=== PATIENT | female | born 1940 | race Caucasian/White ===

== ENCOUNTER 2016-12-14 08:00 | Inpatient (IN) | payer MEDICARE, OTHER ==
[2016-12-13 09:09] VITALS: BMI 24.4
[~2016-12-14] VITALS: Ht 154.9 cm; Wt 57.5 kg
[2016-12-20 09:12] VITALS: BMI 24.4
[2016-12-21] VITALS (30 sets, daily range): BP systolic 99–152; BP diastolic 45–70; PULSE 62–88; RESP 13–22; Ht 154.9 cm; Wt 57.5 kg
[2016-12-21] MEDS ORDERED: BETAMET NA PHOS/AC(6 MG/ML) 5ML INJ IM ONE
[2016-12-21] MEDS ORDERED: GELATIN SIZE 100 SPONGE TOP ONE
[2016-12-21] MEDS ORDERED: CEFAZOLIN 2 GM/50 ML (PMX) 50 ML IVPB ONE (06:00)
[2016-12-21] MEDS ORDERED: NAPR125O4 PO (06:33)
[2016-12-21] MEDS ORDERED: CEFAZOLIN 1 GM INJ ONE (07:00)
[2016-12-21] MEDS ORDERED: ROCURONIUM 50 MG INJ ONE ×2 (07:00→08:12)
[2016-12-21] MEDS ORDERED: NEOSTIGMINE 3 MG/3 ML SYRINGE ONE (07:00)
[2016-12-21] MEDS ORDERED: GLYCOPYRROLATE 1 MG INJ ONE (07:00)
[2016-12-21 07:08] LABS: INR 0.97; PARTIAL THROMBOPLASTIN TIME 27.7 Sec (25.0-35.0); PROTIME 12.9 Sec (12.2-14.2)
[2016-12-21 07:10] LABS: ALBUMIN 4.2 g/dl (3.3-4.9)
[2016-12-21 07:13] LABS: ALBUMIN/GLOBULIN RATIO 1.1; BILIRUBIN,INDIRECT 0.5 mg/dl (0-1.1); BILIRUBIN,TOTAL 0.5 mg/dl (0.2-1.3)
--- NOTE | 2016-12-21 07:16 | HPN ---
Date/Time of Note Date/Time of Note DATE: 12/21/16 TIME: 07:16 Interval H&P Admission Note Pt. seen H&P reviewed: No system changes REDDY TREVIÑO MD Dec 21, 2016 07:16
[2016-12-21 07:18] LABS: CALCIUM 9.3 mg/dl (8.4-10.2); CREATININE 0.79 mg/dl (0.44-1.00); POTASSIUM 3.7 mmol/L (3.5-5.1)
[2016-12-21 07:21] LABS: BASOPHILS % 0.6 % (0.0-2.0); EOSINOPHILS # 0.1 10^3/ul (0.0-0.5); EOSINOPHILS % 1.1 % (0.0-7.0); HEMATOCRIT 41.1 % (37.0-47.0); LYMPHOCYTES # 1.6 10^3/ul (0.8-2.9); LYMPHOCYTES % 25.4 % (15.0-51.0); MEAN CORPUSCULAR HEMOGLOBIN 31.7 pg (29.0-33.0); MEAN CORPUSCULAR VOLUME 93.1 fl (82.0-101.0); MEAN PLATELET VOLUME 8.1 fl (7.4-10.4); MONOCYTE # 0.5 10^3/ul (0.3-0.9); MONOCYTES % 7.3 % (0.0-11.0); NEUTROPHIL # 4.2 10^3/ul (1.6-7.5); NEUTROPHILS % 65.6 % (39.0-77.0); PLATELET COUNT 202 10^3/UL (140-440); RED BLOOD COUNT 4.42 10^6/ul (4.20-5.40); RED CELL DISTRIBUTION WIDTH 13.6 % (11.5-14.5); UNCORRECTED WBC 6.4 10^3/ul (4.8-10.8); WHITE BLOOD COUNT 6.4 10^3/ul (4.8-10.8)
[2016-12-21] MEDS ORDERED: GELATIN SIZE 100 SPONGE ONE (07:29)
[2016-12-21] MEDS ORDERED: SURGIFOAM POWDER 1 GM KIT ONE (07:29)
[2016-12-21] MEDS ORDERED: BUPIVACAINE 0.25%/EPI (SDV) 30 ML INJ ONE (07:30)
[2016-12-21] MEDS ORDERED: CA CHLORIDE 10% 10 ML SYRINGE ONE (07:30)
[2016-12-21] MEDS ORDERED: THROMBIN 5000 UNIT VIAL ONE ×2 (07:30→11:19)
[2016-12-21] MEDS ORDERED: BUPIVACAINE 0.25% (MPF) 30 ML INJ ONE (07:31)
[2016-12-21 07:47] LABS: CONDITION 1
[2016-12-21] MEDS ORDERED: POLYMYXIN/BACITRACIN 1L IRRIG ONE (08:00)
[2016-12-21] MEDS ORDERED: PROPOFOL 100 ML ONE ×2 (08:12→10:57)
[2016-12-21] MEDS ORDERED: MIDAZOLAM 1 MG/ML 2 ML INJ ONE (08:12)
[2016-12-21] MEDS ORDERED: HYDROmorphONE 2 MG/ML SYG ONE (08:12)
[2016-12-21] MEDS ORDERED: POLYMYXIN/BACITRACIN 1L IRRIG IRR ONE (08:36)
[2016-12-21] MEDS ORDERED: BUPIVACAINE 0.25%/EPI (SDV) 30 ML INJ INJ ONE (08:36)
[2016-12-21] MEDS ORDERED: BETAMET NA PHOS/AC(6 MG/ML) 5ML INJ ONE (09:02)
[2016-12-21] MEDS ORDERED: THROMBIN 5000 UNIT VIAL TOP ONE ×2 (09:07)
[2016-12-21] MEDS ORDERED: ONDANSETRON 4 MG INJ ONE (09:45)
[2016-12-21] MEDS ORDERED: METOCLOPRAMIDE 10 MG INJ ONE (09:45)
[2016-12-21] MEDS ORDERED: DEXAMETHASONE 4 MG/ML 1 ML INJ ONE (09:45)
[2016-12-21] MEDS ORDERED: ACETAMINOPHEN 1000MG/100ML IV 100 ML ONE (09:45)
[2016-12-21] MEDS ORDERED: FAMOTIDINE 20 MG INJ ONE (09:46)
[2016-12-21] MEDS ORDERED: MEPERIDINE 25 MG INJ IV PRN (10:30)
[2016-12-21] MEDS ORDERED: morphine (1 MG/ML) 10ML SYRINGE IV PRN ×3 (10:30)
[2016-12-21] MEDS ORDERED: hydrALAzine 20 MG INJ IV PRN (10:30)
[2016-12-21] MEDS ORDERED: ONDANSETRON 4 MG INJ IV PRN ×2 (10:30→12:00)
[2016-12-21] MEDS ORDERED: LABETALOL HCL 20MG INJ IV PRN (10:30)
[2016-12-21] MEDS ORDERED: DIPHENHYDRAMINE 50 MG INJ IV PRN (10:30)
[2016-12-21] MEDS ORDERED: METOCLOPRAMIDE 10 MG INJ IV PRN (10:30)
[2016-12-21] MEDS ORDERED: EPHEDrine SULFATE 50 MG/5 ML SYG IV PRN (10:30)
[2016-12-21] MEDS ORDERED: ALBUMIN HUMAN 5% 250 ML IV PRN (10:30)
[2016-12-21] MEDS ORDERED: HYDROmorphONE (0.2 MG/ML) 10ML SYG IV PRN ×3 (10:30)
--- NOTE | 2016-12-21 11:41 | RADRPT ---
PROCEDURE: Intraoperative imaging of the lumbar spine with fluoroscopy. CLINICAL INDICATION: Back pain. Intraoperative. TECHNIQUE: Four images of the lumbar spine were obtained in the operating room with an image inten sifier. No radiologist was in attendance. 6.6 seconds of fluoroscopy time was used. COMPARISON: No prior study is available for comparison. FINDINGS: Posterior surgical instruments are noted overlying the lumbar spine. IMPRESSION: 1. Intraoperative imaging of the lumbar spine. RPTAT: QQ .Gregorio Barker MD, MD Date Time Electronically viewed and signed by .Gregorio Barker MD, MD on 12/21/2016 11:40 .R/
[2016-12-21] MEDS ORDERED: PROCHLORPERAZINE 10 MG TAB PO PRN (12:00)
[2016-12-21] MEDS ORDERED: HYDROmorphONE 1 MG/ML SYG IV PRN (12:00)
[2016-12-21] MEDS ORDERED: ACETAMINOPHEN 325 MG TAB PO PRN (12:00)
[2016-12-21] MEDS ORDERED: NACL 0.9% 3 ML SYG IV SCH (12:00)
[2016-12-21] MEDS ORDERED: NALOXONE (0.4 MG/ML) INJ IV PRN (12:00)
[2016-12-21] MEDS ORDERED: HYDROCODONE/APAP (5/325) TAB PO PRN (12:00)
--- NOTE | 2016-12-21 12:06 | OPR ---
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 L3-4 Right microdiskectomy with partial laminectomy, medial facetectomy, and foraminotomy 2. L4-5 partial laminectomy, medial facetectomy, and foraminotomy SURGEON: Reddy Treviño MD PHARMACY STUDENT: Michi Leal MD ANESTHESIA: General endotracheal ESTIMATED BLOOD LOSS: Minimal SURGICAL INDICATION: The patient is a 76 year-old woman who presents with an increasing history of Right lower extremity pain. The patient was unable to ambulate significant distances secondary to their pain. She also had weakness in her Right ankle dorsiflexor and toe extensor. The patient had failed conservative treatment. Risks, benefits, and alternatives to a decompressive procedure including but not exclusive of risks of bleeding, infection, nerve injury, cauda equina syndrome, iatrogenic instability, dural tear, myocardial infarction, stroke, pulmonary embolism were explained to the patient, and she wished to proceed. DESCRIPTION OF TECHNIQUE: The patient was identified in the preoperative area and taken to the operating room. Rapid induction of general endotracheal anesthesia was performed. Patient was given 2 g of cefazolin for prophylaxis. The patient was then placed in the prone position on the Stu table with all bony prominences well padded. The back was prepped and draped in usual sterile manner. Using a spinal needle and intraoperative fluoroscopy, the L3-4 level was clearly identified. The skin was injected using 0.25% Marcaine with epinephrine. Longitudinal midline incision was then created using a 10 blade. Further dissection through soft tissue was performed using electrocautery down to the spinous processes. Dissection was taken down the right side of the lamina and over the facet joint capsule. A self-retaining retractor was applied. Again, intraoperative fluoroscopy confirmed the level. The microscope was brought into use for microdissection. The high-speed bur was used to thin the caudal aspect of the L3 lamina. Kerrison rongeurs were then used to resect a small portion of the lamina, the medial facet and the bone overlying the foramen. Ligamentum flavum was also resected using the Kerrison rongeurs. Care was taken to protect the thecal sac throughout the decompressive procedure. The large Right paracentral disc herniation was identified and a microdisckectomy was performed using a 15 blade to cut the pseudoannulus. A micropituitary was used to remove all extruded disk material that was causing impingement on the traversing L4 nerve root. Palpation with a ball-tip probe did not reveal any further disc material, stenosis in the central, subarticular , or foraminal areas. The exiting L3 nerve root and traversing L4 nerve roots were both directly visualized and noted to be decompressed. The cephalad and caudad extent of the decompression were also confirmed using ball-tip probes and intraoperative fluoroscopy. In similar fashion, the partial laminectomy, medial facetectomy and foraminotomy was performed at the L4-5 again repositioning the retractor on the right side. The exiting L4 and traversing L5 nerve roots were visualized and noted to be decompressed. During the decompression at this level it was noted that the ligamentum flavum was scared to the dura. A nerve hook was used to find the plane between the scarred ligamentum and the dura to remove the compressive pathology. A small dural tear was noted during this decompressive procedure with a 2 mm kerrison at the L4-L5 level under the cephalad portion of the L5 lamina. There was a small amount of CSF noted but no nerve roots were observed do to the pin size hole. At the completion of the procedure a small piece of duragen and durseal was placed in the area of the pin size puncture. There was no CSF noted to be leaking at the end of this procedure. The wound was irrigated copiously using normal saline. Meticulous attention was paid toward hemostasis using bipolar cautery, FloSeal, Gelfoam and thrombin. Care was taken to remove all FloSeal and Gelfoam and thrombin prior to wound closure. The fascia was then closed using 0 Vicryl in interrupted fashion. Subcutaneous tissue was closed using 2-0 Vicryl in interrupted fashion. Skin was closed using a running 4-0 Monocryl stitch. The wound was dressed using Dermabond, eye patch and Tegaderm. The patient was returned to the supine position. They were extubated immediately postoperatively and taken to the recovery room in stable condition. I was physically present and participated in the entire operation from incision to closure. Anesthesia: general Estimated Blood Loss: 100 - 150 ml's Pt Condition Post Procedure: stable Disposition: PACU REDDY TREVIÑO MD Dec 21, 2016 12:06
[2016-12-21] MEDS: CEFAZOLIN 1 GM/50 ML (PMX) 50 ML IVPB SCH ×2 (12:41→20:41)
[2016-12-21 14:00] LABS: ADD UMIC NO; URINE BILIRUBIN (Dip) NEGATIVE (NEGATIVE); URINE BLOOD (Dip) NEGATIVE (NEGATIVE); URINE COLOR LT. YELLOW (YELLOW); URINE GLUCOSE (Dip) NEGATIVE (NEGATIVE); URINE KETONES (Dip) TRACE (NEGATIVE); URINE LEUKOCYTE ESTERASE (Dip) NEGATIVE (NEGATIVE); URINE NITRITE (Dip) NEGATIVE (NEGATIVE); URINE TOTAL PROTEIN (Dip) NEGATIVE (NEGATIVE); URINE UROBILINOGEN (Dip) 0.2 E.U./dL (0.1-1.0)
[2016-12-21] MEDS: LACTATED RINGER'S 1,000 ML IV SCH (16:38)
[2016-12-21] MEDS ORDERED: PANTOPRAZOLE (EC) 40 MG TAB PO ONE (17:30)
[2016-12-22 00:13] VITALS: BP 101/59; RESP 20
[2016-12-22] MEDS: HYDROCODONE/APAP (5/325) TAB PO PRN ×2 (05:03→13:36)
[2016-12-22 06:00] LABS: HEMOGLOBIN 12.2 g/dl (12.0-16.0)
[2016-12-22 06:15] LABS: CREATININE 0.78 mg/dl (0.44-1.00)
[2016-12-22 06:23] LABS: POTASSIUM 4.3 mmol/L (3.5-5.1)
[2016-12-22 07:38] VITALS: BP 113/52; RESP 18
[2016-12-22] MEDS ORDERED: ASCORBIC ACID 500 MG TAB PO SCH (09:00)
--- NOTE | 2016-12-22 11:05 | PDOCDIS ---
Discharge Instructions CONDITION Patient Condition: Good HOME CARE INSTRUCTIONS: Diet Instructions: Regular ACTIVITY: Activity Restrictions: Avoid heavy lifting Avoid Heavy Housework Bathing Restrictions: Shower FOLLOW UP/APPOINTMENTS Appointments Follow-up in 2 weeks REDDY TREVIÑO MD Dec 22, 2016 11:05
[2016-12-22] MEDS ORDERED: TRAM50TA2 PO (11:07)
[2016-12-22] MEDS: LACTATED RINGER'S 1,000 ML IV SCH (14:00)
--- NOTE | 2016-12-23 10:11 | DS ---
DATE OF ADMISSION: 12/21/2016 DATE OF DISCHARGE: 12/22/2016 DIAGNOSES: Right paracentral herniated nucleus polyposis at L3-4, severe bilateral central and suba rticular spinal stenosis at L4-5. PROCEDURES PERFORMED: On 12/21/2016, the patient underwent a right-sided L3-4 microdiscectomy with a L4-5 bilateral decompression procedure. BRIEF HISTORY: The patient is a pleasant 76-year-old female who presented to our clinic 6 weeks ago complaining of severe low back and right lower extremity pain. She had weakness in her right ankle dorsiflexor with a mild foot drop. Her pain failed to improve with conservative measures. Therefo re, she was scheduled to undergo the aforementioned procedure. HOSPITAL COURSE: The patient had an uncomplicated hospital course. She cleared physical therapy. During the surgery, she was noted to have a small durotomy which was repaired, and the patient was p laced on bed rest for 24 hours. She denied any headaches. Upon discharge, her incision and dressin g was clean, dry, and intact with no drainage. DIET: Regular. ACTIVITY: No heavy lifting, bending, or twisting. MEDICATIONS AT DISCHARGE: Ultram 50 mg p.o. b.i.d. p.r.n. pain. FOLLOWUP: The patient will follow up in our office in 1 to 2 weeks for repeat evaluation. WOUND CARE: The patient was instructed to keep the dressing clean, dry, and intact. The dressing i s a waterproof dressing. She was instructed that she would be able to take showers as long as she k ept the wound covered in plastic and dry. She will follow up in our office in 2 weeks for repeat evaluation. She was told if she had any feve rs, chills, chest pain, shortness of breath, increased headaches, or excessive drainage from the wou nd site to call our office at an earlier time. Dictated By: REDDY PENA/RYAN Conf#: [id number] DID#: [id number]
== END 2016-12-22 16:50 | disposition home or self-care (01) | DRG 519 ==
LOC: REC 12-21 05:38 → MS1 12-21 14:10
PROVIDERS: ADMIT Orthopaedic Surgery; ATTEND Orthopaedic Surgery
PROC: 00U20JZ Supplement Dura Mater with Synthetic Substitute, Open Approach (ICD-10-PCS; 2016-12-21)
PROC: 0SB20ZZ Excision of Lumbar Vertebral Disc, Open Approach (ICD-10-PCS; principal; 2016-12-21 08:00)
DX: M51.06 Intervertebral disc disorders with myelopathy, lumbar region (principal); G96.11 Dural tear; R20.8 Other disturbances of skin sensation
CPT/HCPCS: 72100; 80048; 80053; 81003; 85014; 85018; 85025; 85610; 85730; 87086; 88304; 97162; J0131; J0690; J0702; J1100; J1170; J2250; J2405; J2710; J2765; J7120